=== PATIENT | male | born 1965 | race African-American/Black ===

== ENCOUNTER 2017-04-28 08:42 | Emergency (ER) | payer OTHER ==
[~2017-04-28] VITALS: Ht 182.9 cm; Wt 91.0 kg
[2017-04-28] MEDS ORDERED: KETOROLAC 60MG/2ML VIAL IM ONE (10:15)
[2017-04-28 10:24] VITALS: BP 169/71
== END 2017-04-28 10:35 | disposition home or self-care (01) ==
LOC: ER 09:32
DX: M54.2 Cervicalgia (principal); M79.1 Myalgia; J06.9 Acute upper respiratory infection, unspecified; I10 Essential (primary) hypertension; Z88.0 Allergy status to penicillin
CPT/HCPCS: 96372; 99283; J1885

== ENCOUNTER 2024-10-21 11:14 | Emergency (ER) | payer OTHER ==
[~2024-10-21] VITALS: Ht 182.9 cm; Wt 88.0 kg
[2024-10-21 11:29] VITALS: O2SAT 98
[2024-10-21] MEDS: LIDOCAINE 5% PATCH TOP SCH (12:48)
[2024-10-21] MEDS: KETOROLAC 15MG/ML VIAL IM ONE (12:48)
[2024-10-21] MEDS ORDERED: LIDO-53 TP (13:36)
[2024-10-21] MEDS ORDERED: CYCL5TAB3 MT (13:36)
[2024-10-21] MEDS ORDERED: NAPR-1176 MT (13:36)
[2024-10-21 13:40] VITALS: BP 140/77; PULSE 65; RESP 17; TEMP 36.9; O2SAT 98
== END 2024-10-21 13:41 | disposition home or self-care (01) ==
LOC: ER 11:14
DX: M54.50 Low back pain, unspecified (principal); M54.2 Cervicalgia; I10 Essential (primary) hypertension; F10.90 Alcohol use, unspecified, uncomplicated; Z79.1 Long term (current) use of non-steroidal anti-inflammatories (NSAID); Z88.0 Allergy status to penicillin; Z95.1 Presence of aortocoronary bypass graft; Z95.2 Presence of prosthetic heart valve; Y90.9 Presence of alcohol in blood, level not specified
CPT/HCPCS: 99283; 96372; J1885